=== PATIENT | female | born 1980 | race Two or more races ===

== ENCOUNTER 2016-11-17 02:38 | Emergency (ER) | payer OTHER ==
[~2016-11-17] VITALS: Ht 162.6 cm; Wt 90.9 kg
[2016-11-17 03:19] LABS: HEMATOCRIT 34.8 % (36.0-46.0); MCH 27.3 PG (29.0-34.0); MCHC 33.6 G/DL (30.0-36.0); MCV 81.1 FL (83-99); MEAN PLAT.VOLUME 11.1 uM^3 (9.5-12.4); PLATELET COUNT 177 K/uL (156-360); RBC DIS.WIDTH-CV 12.6 % (11.8-14.6); RBC DIS.WIDTH-SD 36.9 % (39-53); RED BLOOD COUNT 4.29 M/uL (3.80-5.20); WHITE BLOOD COUNT 7.2 K/uL (4.1-10.2)
[2016-11-17 03:35] LABS: CHLORIDE 106 mEq/L (99-109); POTASSIUM 4.1 mEq/L (3.7-5.4); SODIUM 139 mEq/L (136-147)
[2016-11-17 03:37] LABS: GLUCOSE 109 mg/dL (70-99)
[2016-11-17 03:38] LABS: ANION GAP 9 MEQ/L (2-14)
[2016-11-17 03:39] LABS: TOTAL BILIRUBIN 0.3 mg/dL (0.0-1.0)
[2016-11-17 03:41] LABS: ALKALINE PHOSPHATASE 89 IU/L (3-129); GFR ESTIMATE (CALCULATED) 22 mL/min/
[2016-11-17 03:42] LABS: UREA NITROGEN (BUN) 45 mg/dL (9-23)
[2016-11-17 03:44] LABS: LIPASE 59 U/L (1.0-51.0)
[2016-11-17] MEDS ORDERED: NORCO 5/3251 TABLET PO (04:00)
[2016-11-17] MEDS ORDERED: PEPCID20 MG PO (04:00)
[2016-11-17 04:05] VITALS: BP 138/92
== END 2016-11-17 04:07 | disposition home or self-care (01) ==
LOC: EME 02:38
PROVIDERS: Emergency Medicine
DX: R10.13 Epigastric pain (principal); N28.9 Disorder of kidney and ureter, unspecified; I10 Essential (primary) hypertension
CPT/HCPCS: 80053; 83690; 85027; 99281; 99284

== ENCOUNTER 2016-11-30 16:27 | Emergency (ER) | payer OTHER ==
[~2016-11-30] VITALS: Ht 162.6 cm; Wt 89.0 kg
[~2016-11-30 16:27] MED LIST: NORCO 5/3251 TABLET PO; PEPCID20 MG PO
[2016-11-30 17:34] LABS: ADD MIUA? YES; BILIRUBIN NEGATIVE; BLOOD MODERATE; COLOR STRAW ((YELLOW)); GLUCOSE (STRIP) NEGATIVE; KETONES NEGATIVE; LEUKOCYTES NEGATIVE; NITRITE NEGATIVE; PROTEIN (STRIP) 100; SPECIFIC GRAVITY 1.006 (1.000-1.030); UROBILINOGEN 0.2 MG/DL (0.2-1.0)
[2016-11-30 17:36] LABS: BACTERIA NONE SEEN /HPF; EPITHELIAL CELLS RARE /HPF; MUCUS TRACE /LPF; RED BLOOD CELLS 0-5 /HPF (0-5); UCUL ADDED? NO; WHITE BLOOD CELLS 0-5 /HPF (0-5)
[2016-11-30 17:48] LABS: HEMATOCRIT 31.8 % (36.0-46.0); MCH 27.5 PG (29.0-34.0); MCV 80.9 FL (83-99); MEAN PLAT.VOLUME 11.5 uM^3 (9.5-12.4); PLATELET COUNT 162 K/uL (156-360); RBC DIS.WIDTH-CV 12.3 % (11.8-14.6); RBC DIS.WIDTH-SD 36.2 % (39-53); RED BLOOD COUNT 3.93 M/uL (3.80-5.20); WHITE BLOOD COUNT 8.7 K/uL (4.1-10.2)
[2016-11-30 17:56] LABS: CHLORIDE 104 mEq/L (99-109); SODIUM 138 mEq/L (136-147)
[2016-11-30 17:57] LABS: GLUCOSE 93 mg/dL (70-99)
[2016-11-30 17:59] LABS: ANION GAP 11 MEQ/L (2-14)
[2016-11-30 18:01] LABS: GFR ESTIMATE (CALCULATED) 24 mL/min/
[2016-11-30 18:02] LABS: UREA NITROGEN (BUN) 34 mg/dL (9-23)
[2016-11-30] MEDS ORDERED: PERCOCET 5/31 TABLET PO (18:55)
[2016-11-30] MEDS ORDERED: CHERATUSSIN AC473 ML PO (18:55)
[2016-11-30 19:18] VITALS: BP 144/95
== END 2016-11-30 19:19 | disposition home or self-care (01) ==
LOC: EME 16:27
PROVIDERS: Physician Assistant
DX: G89.18 Other acute postprocedural pain (principal); R05 Cough; I12.9 Hypertensive chronic kidney disease with stage 1 through stage 4 chronic kidney disease, or unspecified chronic kidney disease; N18.9 Chronic kidney disease, unspecified
CPT/HCPCS: 71020; 80048; 81003; 85027; 99281; 99284